=== PATIENT | male | born 1960 | race Caucasian/White ===

== ENCOUNTER 2017-02-21 15:45 | Emergency (ER) | payer OTHER ==
[2017-02-21 15:57] VITALS: BP 114/74
--- NOTE | 2017-02-21 15:59 | UC ---
Skin Complaint HPI - HPI Summary HPI Summary: 56 year old male presents with fungal infection on his toenails. - History of Current Complaint Chief Complaint: [facility] Time Seen by Provider: 02/21/17 15:59 Stated Complaint: SKIN COMPLAINT Hx Obtained From: Patient Onset/Duration: Lasting Weeks Onset Severity: Moderate Current Severity: Moderate - Allergy/Home Medications Allergies/Adverse Reactions: Allergies Allergy/AdvReac Type Severity Reaction Status Date / Time No Known Allergies Allergy Verified 02/21/17 15:57 Review of Systems Constitutional: Negative Skin: Other - fungal infection on toenails Eyes: Negative ENT: Negative Respiratory: Negative Cardiovascular: Negative Gastrointestinal: Negative Genitourinary: Negative Motor: Negative Neurovascular: Negative Musculoskeletal: Negative Neurological: Negative Psychological: Negative All Other Systems Reviewed And Are Negative: Yes PMH/Surg Hx/FS Hx/Imm Hx Previously Healthy: Yes - Surgical History Surgical History: Yes Surgery Procedure, Year, and Place: HERNIA REPAIR, Appendectomy - Family History Known Family History: Negative: Cardiac Disease, Hypertension, Diabetes - Social History Alcohol Use: None Substance Use Type: None Smoking Status (MU): Never Smoked Tobacco Physical Exam Triage Information Reviewed: Yes Vital Signs: Initial Vital Signs Temp 36.9 C 02/21/17 15:52 Pulse 66 02/21/17 15:52 Resp 18 02/21/17 15:52 BP 114/74 02/21/17 15:52 Pulse Ox 100 02/21/17 15:52 Vital Signs Reviewed: Yes Eye Exam: Normal ENT Exam: Normal Dental Exam: Normal Neck exam: Normal Neck: Positive: 1 Respiratory Exam: Normal Cardiovascular Exam: Normal Abdominal Exam: Normal Musculoskeletal Exam: Normal Neurological Exam: Normal Psychological Exam: Normal Skin: Positive: rashes - FUNGAL INFECTION OF TOENAILS Course/Dx - Differential Diagnoses - Skin Complaint Differential Diagnoses: Other - Diagnoses Provider Diagnoses: TOENAIL FUNGUS Discharge - Discharge Plan Condition: Stable Disposition: HOME Prescriptions: Ciclopirox [[place] Nail Lacquer] 8 % EX SEE INSTRUCTIONS #1 bottle Patient Education Materials: Parony[place]ia (ED) Referrals: Julieta Garcia [Medical Doctor] - Jeremy Yan MD [Primary Care Provider] -
== END 2017-02-21 16:39 | disposition home or self-care (01) ==
LOC: UCEAST 15:45
DX: B35.1 Tinea unguium (principal)
CPT/HCPCS: 99211; G0463